=== PATIENT | female | born 1980 | race Caucasian/White ===

== ENCOUNTER → 2021-04-29 | Outpatient (CLI) | payer BC ==
--- NOTE | 2021-05-01 08:20 | MM ---
Reason for exam: screening (asymptomatic). Baseline mammogram. History: Patient had first child at age 33. Family history of breast cancer in mother at age 55. Taking hormonal contraceptives for 3 months. Physical Findings: Nurse did not find any significant physical abnormalities on exam. MG Screening Mammo w CAD Bilateral CC and MLO view(s) were taken. The breast tissue is heterogeneously dense. This may lower the sensitivity of mammography. Finding: There is an intermediate concern, suspicious 5 mm high density, circumscribed mass located 6 cm from the nipple in the left breast retroglandular on MLO view. There is no discrete abnormality. ASSESSMENT: Incomplete: need additional imaging evaluation, BI-RAD 0 RECOMMENDATION: Ultrasound of the left breast. [facility] will attempt to contact patient to return for ultrasound.
== END | disposition home or self-care (01) ==
LOC: RADMAMWWP 13:30
PROVIDERS: ATTEND Obstetrics & Gynecology Obstetrics
DX: Z12.31 Encounter for screening mammogram for malignant neoplasm of breast (principal); Z80.3 Family history of malignant neoplasm of breast; Z79.3 Long term (current) use of hormonal contraceptives
CPT/HCPCS: 77067

== ENCOUNTER → 2021-05-07 | Outpatient (CLI) | payer BC ==
--- NOTE | 2021-05-07 08:43 | USB ---
EXAMINATION TYPE: US breast workup limited LT DATE OF EXAM: 05/07/2021 COMPARISON: 04/29/2021 CLINICAL HISTORY: R92.8 Abnormal mammogram. Findings: Targeted left breast ultrasound was performed from 9-3 o'clock and in the retroareolar region and axi lla. There is no sonographic correlate to the asymmetry seen on mammogram. Left diagnostic mammogram is re commended, preferably with tomosynthesis. An incidental 0.3 cm cyst is noted in the retroareolar region. IMPRESSION: There is no sonographic correlate to the asymmetry seen on mammogram. Left diagnostic mammogram is re commended, preferably with tomosynthesis. BI-RADS 0, incomplete.
--- NOTE | 2021-05-07 09:17 | MM ---
Reason for exam: additional evaluation requested from abnormal screening. Last mammogram was performed less than 1 month ago. History: Patient had first child at age 33. Family history of breast cancer in mother at age 55. Taking hormonal contraceptives for 3 months. MG 3D Diag Mammo W/Cad LT CC and MLO view(s) were taken of the left breast. Prior study comparison: April 29, 2021, bilateral MG screening mammo w CAD. The breast tissue is heterogeneously dense. This may lower the sensitivity of mammography. There is an intramammary lymph node in the left upper breast, benign. These results were verbally communicated with the patient and result sheet given to the patient on 05/07/21. ASSESSMENT: Benign, BI-RAD 2 RECOMMENDATION: Return to routine screening mammogram schedule for both breasts.
== END | disposition home or self-care (01) ==
LOC: RADUSWWP 08:11
PROVIDERS: ATTEND Obstetrics & Gynecology Obstetrics
DX: R92.2 Inconclusive mammogram (principal); Z80.3 Family history of malignant neoplasm of breast
CPT/HCPCS: 77061; 77065

== ENCOUNTER 2023-10-24 19:29 | Observation (INO) | payer BC ==
--- NOTE | 2023-10-24 19:32 | ED ---
General Adult HPI - General Source: RN notes reviewed <Ade Lauren - Last Filed: 10/24/23 19:31> <Vicente Bueno - Last Filed: 10/25/23 01:26> - General Stated complaint: SOB Time Seen by Provider: 10/24/23 19:31 - History of Present Illness Initial comments: 43-year-old female presents the emergency department with a chief complaint of shortness of breath. Patient resents from urgent care where she received 2 breathing treatments and a steroid. (Ade Lauren) 43-year-old female history of asthma presenting with chief complaint of shortness of breath. Patient was seen in urgent care earlier today for shortness of breath, she was given a steroid injection and breathing treatments, she was told to report to the ER if symptoms did not improve. Patient continued to feel short of breath. She states that she is an occasional smoker. She denies chest pain, fever, nausea, vomiting, abdominal pain. (Vicente Bueno) - Related Data Allergies Allergy/AdvReac Type Severity Reaction Status Date / Time No Known Allergies Allergy Verified 10/24/23 19:43 Review of Systems ROS Other: All systems not noted in ROS Statement are negative. <Ade Lauren - Last Filed: 10/24/23 19:31> ROS Other: All systems not noted in ROS Statement are negative. <Vicente Bueno - Last Filed: 10/25/23 01:26> ROS Statement: Those systems with pertinent positive or pertinent negative responses have been documented in the HPI. General Exam <Ade Lauren - Last Filed: 10/24/23 19:31> Limitations: no limitations General appearance: alert, in no apparent distress Head exam: Present: atraumatic, normocephalic Eye exam: Present: normal appearance Neck exam: Present: normal inspection Respiratory exam: Present: wheezes (Expiratory wheezes heard throughout the lung barton). Absent: respiratory distress, rales, rhonchi, stridor Cardiovascular Exam: Present: normal rhythm, tachycardia, normal heart sounds. Absent: systolic murmur, diastolic murmur, rubs, gallop, clicks Neurological exam: Present: alert, oriented X3 Psychiatric exam: Present: normal affect, normal mood Skin exam: Present: warm, dry <Vicente Bueno - Last Filed: 10/25/23 01:26> - General Exam Comments Initial Comments: Visual Physical Exam Vital signs reviewed General: Well-appearing, nontoxic, no acute distress. Head: Normocephalic, atraumatic Eyes: PERRLA, EOMI ENT: Airway patent Chest: Nonlabored breathing Skin: No visual rash, normal skin tone Neuro: Alert and oriented 3 Musculoskeletal: No gross abnormalities (Ade Lauren) Course Vital Signs 10/24/23 10/24/23 10/24/23 19:43 20:27 20:48 Temperature 99.3 F 99.5 F Pulse Rate 132 H 115 H Respiratory 26 H 18 20 Rate Blood Pressure 146/89 144/91 O2 Sat by Pulse 93 L 94 L Oximetry 10/24/23 10/24/23 10/24/23 22:04 22:12 22:21 Temperature 98.4 F Pulse Rate 68 71 110 H Respiratory 18 Rate Blood Pressure 111/70 O2 Sat by Pulse 89 L Oximetry 10/24/23 10/24/23 22:29 23:32 Temperature 98.3 F Pulse Rate 104 H Respiratory 20 Rate Blood Pressure 138/82 O2 Sat by Pulse 96 96 Oximetry Medical Decision Making - Lab Data Result diagrams: 10/24/23 20:25 10/24/23 20:25 <Vicente Bueno - Last Filed: 10/25/23 01:26> - Medical Decision Making Was pt. sent in by a medical professional or institution (HORACE Graham, BUSINESS PROCESS ARCHITECT, urgent care, hospital, or fpc...) When possible be specific @ -No Did you speak to anyone other than the patient for history (EMS, parent, family, police, friend...)? What history was obtained from this source @ -No Did you review nursing and triage notes (agree or disagree)? Why? @ -I reviewed and agree with nursing and triage notes Were old charts reviewed (outside hosp., previous admission, EMS record, old EKG, old radiological studies, urgent care reports/EKG's, fpc records)? Report findings @ -No old charts were reviewed Differential Diagnosis (chest pain, altered mental status, abdominal pain women, abdominal pain men, vaginal bleeding, weakness, fever, dyspnea, syncope, headache, dizziness, GI bleed, back pain, seizure, CVA, palpatations, mental health, musculoskeletal)? @ -MDM Differential Dyspnea: Coronary syndrome, arrhythmia, tamponade, asthma, COPD, pulmonary embolism, pneumonia, pneumothorax, pulmonary effusion, anaphylaxis, diabetic ketoacidosis, flailed chest, pulmonary contusion, diaphragmatic rupture, anemia, neuromuscular this is not meant to be an all-inclusive list. EKG interpreted by me (3pts min.). @ - X-rays interpreted by me (1pt min.). @ -Chest x-ray shows no acute process CT interpreted by me (1pt min.). @ -None done U/S interpreted by me (1pt. min.). @ -None done What testing was considered but not performed or refused? (CT, X-rays, U/S, labs)? Why? @ -None What meds were considered but not given or refused? Why? @ -None Did you discuss the management of the patient with other professionals (professionals i.e. , PA, BUSINESS PROCESS ARCHITECT, lab, RT, psych nurse, social work coordinator, hold worker, teacher, health promotion officer, caseworker protective services)? Give summary @ -I spoke with Dr. Sy who accepted admission Was smoking cessation discussed for >3mins.? @ -No Was critical care preformed (if so, how long)? @ -No Were there social determinants of health that impacted care today? How? (Homelessness, low income, unemployed, alcoholism, drug addiction, transportation, low edu. Level, literacy, decrease access to med. care, longterm, rehab)? @ -No Was there de-escalation of care discussed even if they declined (Discuss DNR or withdrawal of care, Hospice)? DNR status @ -No What co-morbidities impacted this encounter? (DM, HTN, Smoking, COPD, CAD, Cancer, CVA, ARF, Chemo, Hep., AIDS, mental health diagnosis, sleep apnea, morbid obesity)? @ -Asthma Was patient admitted / discharged? Hospital course, mention meds given and route, prescriptions, significant lab abnormalities, going to OR and other pertinent info. @ -43-year-old female presenting with chief complaint of shortness of breath. History of asthma. She received 2 breathing treatments and a steroid injection in urgent care earlier today. On physical exam diffuse expiratory wheezes are heard on auscultation. She is positive for influenza A. Patient is given DuoNeb here, no improvement. Patient found to be 89% on room air, she is placed on 2 L oxygen via nasal cannula and oxygenation has improved to 96%. Patient will be admitted for asthma exacerbation. Patient is agreeable to this plan. I discussed this case with my attending Dr. Alberto Undiagnosed new problem with uncertain prognosis? @ -No Drug Therapy requiring intensive monitoring for toxicity (Heparin, Nitro, Insulin, Cardizem)? @ -No Were any procedures done? @ -No Diagnosis/symptom? @ -Asthma exacerbation Acute, or Chronic, or Acute on Chronic? @ -Acute Uncomplicated (without systemic symptoms) or Complicated (systemic symptoms)? @ -Complicated Side effects of treatment? @ -No Exacerbation, Progression, or Severe Exacerbation? @ -Exacerbation Poses a threat to life or bodily function? How? (Chest pain, USA, NM, pneumonia, PE, COPD, DKA, ARF, appy, cholecystitis, CVA, Diverticulitis, Homicidal, Suicidal, threat to staff... and all critical care pts) @ -yes Diagnosis/symptom? @Influenza A Acute, or Chronic, or Acute on Chronic? @Acute Uncomplicated (without systemic symptoms) or Complicated (systemic symptoms)? @Complicated Side effects of treatment? @ none Exacerbation, Progression, or Severe Exacerbation] @ no Poses a threat to life or bodily function? @ yes (Vicente Bueno) - Lab Data Lab Results 10/24/23 10/24/23 10/24/23 Range/Units 20:25 20:25 20:25 WBC 8.3 (3.8-10.6) k/uL RBC 4.04 (3.80-5.40) m/uL Hgb 12.3 (11.4-16.0) gm/dL Hct 36.1 (34.0-46.0) % MCV 89.4 (80.0-100.0) fL MCH 30.4 (25.0-35.0) pg MCHC 34.0 (31.0-37.0) g/dL RDW 13.0 (11.5-15.5) % Plt Count 271 (150-450) k/uL MPV 8.4 Neutrophils % 96 % Lymphocytes % 1 % Monocytes % 2 % Eosinophils % 0 % Basophils % 0 % Neutrophils # 8.0 H (1.3-7.7) k/uL Lymphocytes # 0.1 L (1.0-4.8) k/uL Monocytes # 0.2 (0-1.0) k/uL Eosinophils # 0.0 (0-0.7) k/uL Basophils # 0.0 (0-0.2) k/uL Sodium 139 (137-145) mmol/L Potassium 3.8 (3.5-5.1) mmol/L Chloride 104 (98-107) mmol/L Carbon Dioxide 21 L (22-30) mmol/L Anion Gap 14 mmol/L BUN 7 (7-17) mg/dL Creatinine 0.79 (0.52-1.04) mg/dL Est GFR (CKD-EPI)AfAm >90 (>60 ml/min/1.73 sqM) Est GFR (CKD-EPI)NonAf >90 (>60 ml/min/1.73 sqM) Glucose 170 H (74-99) mg/dL Calcium 9.1 (8.4-10.2) mg/dL Total Bilirubin 0.8 (0.2-1.3) mg/dL AST 28 (14-36) U/L ALT 26 (4-34) U/L Alkaline Phosphatase 75 (38-126) U/L Total Protein 7.4 (6.3-8.2) g/dL Albumin 4.2 (3.5-5.0) g/dL Influenza Type A (PCR) Detected A (Not Detectd) Influenza Type B (PCR) Not Detected (Not Detectd) RSV (PCR) Not Detected (Not Detectd) SARS-CoV-2 (PCR) Not Detected (Not Detectd) Disposition <Ade Lauren - Last Filed: 10/24/23 19:31> Time of Disposition: 23:29 <Vicente Bueno - Last Filed: 10/25/23 01:26> Clinical Impression: Asthma exacerbation, Influenza A Disposition: ADMITTED IP TO THIS HOSP Condition: Stable
--- NOTE | 2023-10-24 19:51 | XR ---
EXAMINATION TYPE: XR chest 2V DATE OF EXAM: 10/24/2023 COMPARISON: None HISTORY: 43-year-old female shortness of breath. TECHNIQUE: PA and lateral views FINDINGS: The cardiomediastinal silhouette, aorta, and pulmonary vasculature are within normal limits. Normal v ariant azygous fissure. Otherwise, lungs and pleural spaces are clear. IMPRESSION: No acute cardiopulmonary process.
[2023-10-24] MEDS ORDERED: IPRATROPIUM-ALBUTEROL 3 ML NEB INHALATION STA ×3 (20:12)
[2023-10-24 21:02] LABS: AST 28 U/L (14-36); African American GFR (CKD) >90 (>60 ml/min/1.73 sqM); Albumin 4.2 g/dL (3.5-5.0); Alkaline Phosphatase 75 U/L (38-126); Anion Gap 14 mmol/L; Blood Urea Nitrogen 7 mg/dL (7-17); Calcium 9.1 mg/dL (8.4-10.2); Carbon Dioxide 21 mmol/L (22-30); Chloride 104 mmol/L (98-107); Glucose 170 mg/dL (74-99); Non-African American GFR(CKD) >90 (>60 ml/min/1.73 sqM); Potassium 3.8 mmol/L (3.5-5.1); Sodium 139 mmol/L (137-145); Total Bilirubin 0.8 mg/dL (0.2-1.3); Total Protein 7.4 g/dL (6.3-8.2)
[2023-10-24 21:08] LABS: ALT 26 U/L (4-34)
[2023-10-24 21:32] LABS: Basophils % (A) 0 %; Eosinophils % (A) 0 %; HCT 36.1 % (34.0-46.0); HGB 12.3 gm/dL (11.4-16.0); Lymphocytes # (A) 0.1 k/uL (1.0-4.8); Lymphocytes % (A) 1 %; MCH 30.4 pg (25.0-35.0); MCV 89.4 fL (80.0-100.0); Mean Platelet Volume 8.4; Monocytes # (A) 0.2 k/uL (0-1.0); Monocytes % (A) 2 %; Neutrophils % (A) 96 %; Platelet Count 271 k/uL (150-450); RBC 4.04 m/uL (3.80-5.40); WBC 8.3 k/uL (3.8-10.6)
[2023-10-24] MEDS ORDERED: IPRATROPIUM-ALBUTEROL 3 ML NEB INHALATION PRN (22:34)
[2023-10-24] MEDS: OSELTAMIVIR 75 MG CAP PO SCH (22:54)
[2023-10-24] MEDS ORDERED: NALOXONE 0.4 MG/ML 1 ML VIAL IV PRN (23:27)
[2023-10-24] MEDS ORDERED: ACETAMINOPHEN TAB 325 MG TAB PO PRN (23:27)
[2023-10-24] MEDS ORDERED: IBUPROFEN 400 MG TAB PO PRN (23:27)
[2023-10-25] MEDS ORDERED: methylPREDNISolone SOD SUCCI 125 MG/2 ML VIAL IV SCH
[2023-10-25] MEDS ORDERED: MELATONIN 5 MG TABLET PO PRN (01:15)
[2023-10-25] MEDS ORDERED: SODIUM CHLORIDE 0.9% 1,000 ML IV SCH (02:15)
--- NOTE | 2023-10-25 02:42 | P.HPIM ---
History of Present Illness H&P Date: 10/24/23 Chief Complaint: shortness of breath 43 year old female with poorly controlled asthma, does not follow up with doctor she is coming in due to URI symptoms of 2 days duration, with symptoms getting worse today , reporting diffuse body aches, sore throat, non productive cough, and fever, all her household are sick with respiratory symptoms, her got sick first about a week ago. she is not vaccinated against the flu, but received vaccination against covid in the past. today , she was becoming increasingly short of breath, with wheezing, her albuterol inhaler was not helping, she went to an urgent care, who advised her to go to the ED after giving her 2 breathing treatments and steroid injection with out much improvement in her symptoms she denies tobacco smoking, illicit drugs or heavy alcohol no recent travel or hospital stay , no calf tenderness , no history of blood clots no history of intubation, she only uses rescue inhaler at home, no follow up with PCP or pulmonary , no home oxygen . she uses albuterol rescue inhaler multiple times per day normally review of systems Pertinent positives as noted in HPI. All other systems were reviewed and are negative on exam Constitutional: No acute distress, conversant, pleasant Eyes: Anicteric sclerae, moist conjunctiva, Pupils equal round reactive to light ENMT: NC/AT Oropharynx clear, no erythema, or exudates Neck: Supple, no masses, or JVD No carotid bruits No thyromegaly Lungs: prolonged expiratory phase with expiratory wheezing Clear to percussion Normal respiratory effort, no accessory muscle use Cardiovascular: Heart regular in rate and rhythm, No murmurs, gallops, or rubs No peripheral edema Abdominal: Soft Nontender, no guarding, rebound or rigidity Abdomen moving with respiration Normoactive bowel sounds No hepatomegaly, No splenomegaly No palpable mass No abdominal wall hernia noted Extremities: No digital cyanosis No clubbing Pedal pulses intact and symmetrical Radial pulses intact and symmetrical No calf tenderness Psychiatric: Alert and oriented to person, place and time Appropriate affect fair judgement Neuro Muscles Strength 5/5 in all 4 extremities Sensation to light touch grossly present throughout Cranial nerves II-XII grossly intact Lymphatics: no palpable cervical or supraclavicular lymph nodes Past Medical History Past Medical History: No Reported History History of Any Multi-Drug Resistant Organisms: None Reported Additional Past Surgical History / Comment(s): Cardiac ablation-svt Past Psychological History: No Psychological Hx Reported Smoking Status: Current some day smoker Past Alcohol Use History: Occasional Past Drug Use History: None Reported Medications and Allergies Allergies Allergy/AdvReac Type Severity Reaction Status Date / Time No Known Allergies Allergy Verified 10/24/23 19:43 Physical Exam Vitals: Vital Signs Temp Pulse Resp BP Pulse Ox 10/24/23 22:29 96 10/24/23 22:21 98.4 F 110 H 18 111/70 89 L 10/24/23 22:12 71 10/24/23 22:04 68 10/24/23 20:48 99.5 F 115 H 20 144/91 94 L 10/24/23 20:27 18 10/24/23 19:43 99.3 F 132 H 26 H 146/89 93 L Intake and Output 10/24/23 10/24/23 10/25/23 14:59 22:59 06:59 Other: Weight 63.503 kg Results CBC & Chem 7: 10/24/23 20:25 10/24/23 20:25 Labs: Abnormal Lab Results - Last 24 Hours (Table) 10/24/23 10/24/23 10/24/23 Range/Units 20:25 20:25 20:25 Neutrophils # 8.0 H (1.3-7.7) k/uL Lymphocytes # 0.1 L (1.0-4.8) k/uL Carbon Dioxide 21 L (22-30) mmol/L Glucose 170 H (74-99) mg/dL Influenza Type A (PCR) Detected A (Not Detectd) Assessment and Plan Assessment: 43 year old female with poorly controlled asthma, coming in with SOB and wheezing with URI symptoms , I discussed the case with ED doc and I accepted the admission for acute hypoxic respiratory failure secondary to influenza A infection and asthma exacerbation with anticipated length of stay > 2 midnights acute hypoxic respiratory failure acute asthma exacerbation secondary to influenza A droplet precautions start Tamiflu 75 mg po bid for 5 days supplemental oxygen as needed dc solumedrol , start prednisone 40 mg po daily duonebs PRN q2 hrs for SOB supportive care tylenol for fever prn 650 mg po qid CXR no acute pulmonary process Blood work showed white count 8.3 hemoglobin 12.3 unremarkable Sodium 139 potassium 3.8 unremarkable When necessary 7 creatinine 0.79 unremarkable Influenza A positive Covid and RSV are negative Due to prophylaxis Lovenox subcu 40 mg daily Full code.
[2023-10-25] MEDS ORDERED: SYMBICORT 160-4.5 MCG INHALER INHALATION SCH (08:00)
[2023-10-25] MEDS ORDERED: predniSONE 20 MG TAB PO SCH (09:00)
[2023-10-25] MEDS ORDERED: ENOXAPARIN 40 MG/0.4 ML SYRINGE SQ SCH (09:00)
[2023-10-25] MEDS: IPRATROPIUM-ALBUTEROL 3 ML NEB INHALATION SCH ×2 (09:18→12:16)
[2023-10-25 09:49] VITALS: BP 116/77; TEMP 98.5
[2023-10-25] MEDS: OSELTAMIVIR 75 MG CAP PO SCH (10:13)
[2023-10-25 11:49] VITALS: RESP 20
--- NOTE | 2023-10-25 11:52 | P.DS ---
Providers Date of admission: 10/24/23 23:49 Expected date of discharge: 10/25/23 Attending physician: Kylie Sy MD Primary care physician: Stated None Hospital Course: Discharge Diagnosis: Acute hypoxic respiratory failure Asthma exacerbation Influenza infection Hospital Course: 43-year-old female with poorly controlled asthma, presenting with shortness of breath. Patient was hypoxic on presentation. Chest x-ray shows no acute process. Laboratory tests positive for influenza. Patient admitted for acute hypoxic respiratory failure in the setting of influenza and asthma exacerbation. Respiratory function improved. On room air. Patient being discharged on steroids, Tamiflu and inhalers. Patient seen and examined at bedside. Vital signs reviewed and stable. General: nontoxic, no distress, appears at stated age Derm: warm, dry Head: atraumatic, normocephalic, symmetric Eyes: EOMI, no lid lag, anicteric sclera Mouth: no lip lesion, mucus membranes moist Cardiovascular: S1S2 reg, no murmur Lungs: CTA bilateral, no rhonchi, no rales , no accessory muscle use Abdominal: soft, nontender to palpation, no guarding, no appreciable organomegaly Ext: no gross muscle atrophy, no edema, no contractures Neuro: CN II-XI grossly intact, no focal neuro deficits Psych: Alert, oriented, appropriate affect A total of 33 minutes of time were spent preparing this complex discharge summary. Patient was discharged on 10/25/23 at 1149. Patient Condition at Discharge: Stable Plan - Discharge Summary New Discharge Prescriptions: New predniSONE [Deltasone] 40 mg PO DAILY #8 tab Budesonide-Formot 160-4.5 Mcg [Symbicort 160-4.5 Mcg Inhaler] 2 puff INHALATION RT-BID #1 each Oseltamivir [Tamiflu] 75 mg PO Q12HR #8 cap Discharge Medication List Budesonide-Formot 160-4.5 Mcg [Symbicort 160-4.5 Mcg Inhaler] 2 puff INHALATION RT-BID #1 each 10/25/23 [Rx] Oseltamivir [Tamiflu] 75 mg PO Q12HR #8 cap 10/25/23 [Rx] predniSONE [Deltasone] 40 mg PO DAILY #8 tab 10/25/23 [Rx] Follow up Appointment(s)/Referral(s): None,Stated [Primary Care Provider] - 1-2 days Patient Instructions/Handouts: Asthma (DC), Influenza (DC) Activity/Diet/Wound Care/Special Instructions: Please see a PCP. Discharge Disposition: HOME SELF-CARE
[2023-10-25 12:35] VITALS: PULSE 89
== END 2023-10-25 12:43 | disposition home or self-care (01) ==
LOC: EC 19:29 → 6NMEDSUR 23:49
PROVIDERS: ADMIT Internal Medicine; ATTEND Internal Medicine
DX: J96.01 Acute respiratory failure with hypoxia (principal); J45.901 Unspecified asthma with (acute) exacerbation; J10.1 Influenza due to other identified influenza virus with other respiratory manifestations; F17.200 Nicotine dependence, unspecified, uncomplicated; Z20.822 Contact with and (suspected) exposure to COVID-19
CPT/HCPCS: 96374; 99285; 36415; 94640 ×2; 93005; 80053; 85025; 87636; 71046; G0378 ×2; J2930; J7512